=== PATIENT | male | born 1930 | race Caucasian/White ===

== ENCOUNTER 2016-07-03 11:54 | Emergency (ER) | payer MEDICARE, OTHER ==
[2016-07-03 12:10] VITALS: BP 147/71
--- NOTE | 2016-07-03 12:27 | ERNOTE ---
Abdominal HPI - Narrative Date of Service: 07/03/16 - General Chief Complaint: Constipation Time Seen by Provider: 07/03/16 12:12 Source: patient Exam Limitations: no limitations - Immun/Allergies/Home Medications Allergies/Adverse Reactions: Allergies No Known Allergies Allergy (Verified 07/03/16 12:02) Home Medications: HOME MEDICATIONS Aspirin 81 mg PO DAILY 07/03/16 [Last Taken Unknown] Metoprolol Tartrate [Lopressor] 25 mg PO DAILY 07/03/16 [Last Taken Unknown] Sertraline HCl [Zoloft] 50 mg PO DAILY 07/03/16 [Last Taken Unknown] Tamsulosin HCl [Flomax] 0.4 mg PO DAILY@1800 #30 cap 07/03/16 [Last Taken Unknown] - History of Present Illness Narrative: Pt. comes in with c/o not being able to have a BM for two weeks. Pt. states that he feels like the stool is not reaching his rectum. Pt. denies any abd pain, NVD, fever or recent illness. Pt. does state taht he has had some burning withy urination and worsening of his BPH symptoms recently, which is managed by [facility]. Review of Systems - Review of Systems Constitutional: Present: no symptoms reported. Absent: recent illness, fever, weakness, fatigue, malaise EYE: Present: no symptoms reported ENT: Present: no symptoms reported Respiratory: Present: no symptoms reported. Absent: shortness of breath, cough , wheezing Cardiology: Present: no symptoms reported. Absent: chest pain, palpitations, edema Gastrointestinal/Abdominal: Present: constipation. Absent: nausea, vomiting, diarrhea, abdominal pain, eating less, drinking less Genitourinary: Present: frequency, dysuria. Absent: hematuria, decreased urinary output Musculoskeletal: Present: no symptoms reported. Absent: back pain, joint pain Skin: Present: no symptoms reported. Absent: rash, change in color Neurological: Present: no symptoms reported. Absent: headache, dizziness/light- headedness, numbness, tingling All Other Systems: All systems neg except as marked - Patient's Past Medical History Patient History - Medical: Depression Patient History - Cardiac/Respiratory: Hypertension Patient History - Surgical Procedures: Cholecystectomy, Other - Family History Mother Family History - Medical: , History Unknown Father Family History - Medical: , History Unknown - Social History Living Situations: home Smoking Status: Former smoker Have you smoked in the past 12 months: No Do you dip or chew tobacco: No Alcohol Use: none Drug Use: none Physical Exam - Physical Exam General Appearance: Present: wd/wn, alert, no apparent distress Eye Exam: Normal inspection: bilateral, PERRL: bilateral, EOMI: bilateral Ears, Nose, Throat: Present: normal ENT inspection, hearing grossly normal, normal pharynx Neck: Present: normal inspection, nontender. Absent: lymphadenopathy (R), lymphadenopathy (L) Respiratory: Present: no respiratory distress, normal breath sounds, no accessory muscle use, chest nontender, lungs clear Cardiovascular/Chest: Present: regular rate, rhythm, no murmur, normal peripheral pulses Gastrointestinal/Abdominal: Present: normal bowel sounds, nontender, nondistended, soft, no organomegaly Male Genitals Exam: Present: no hernia, high [place] prostate - enlarged mildly Back Exam: Present: normal inspection, normal range of motion, no CVA tenderness , no vertebral tenderness Neurological Exam: Present: alert, oriented, normal mood/affect, no motor/ sensory deficits Skin Exam: Present: normal color, warm/dry ED Progress - Vital Signs Patient's Vital Signs:: I have reviewed the patient's vital signs. Vital Signs: Vital Signs 07/03/16 11:58 Temperature 36.5 C Pulse Rate 67 Respiratory 16 Rate Blood Pressure 147/71 O2 Sat by Pulse 100 Oximetry - X-Ray X-Ray #1 X-Ray: abdomen Interpretation: Reviewed by me X-ray Comments: Pt. with normal amount of stool and prostate calcifications - Progress/Reassessment Chief Complaint: Constipation Departure - Departure Clinical Impression: Anorexia BPH (benign prostatic hyperplasia) Qualifiers: Prostatic enlargement morphology: unspecified morphology Lower urinary tract symptom presence: symptoms present Qualified Code(s): N40.1 - Benign prostatic hyperplasia with lower urinary tract symptoms Disposition: Home self-care Condition: Good Instructions: Benign Prostatic Hyperplasia, High-Protein and High-Calorie Diet Additional Instructions: Please follow up with urology at [facility] and increase the amount you eat. Referrals: Mars Ni MD [Primary Care Provider] - Prescriptions: Tamsulosin HCl [Flomax] 0.4 mg PO DAILY@1800 #30 cap
[2016-07-03 12:37] LABS: Urine Bilirubin Negative (NEGATIVE); Urine Blood Negative /ul (NEGATIVE); Urine Ketone Negative (NEGATIVE); Urine Nitrite Negative (NEGATIVE); Urine Protein Negative (NEGATIVE); Urine Specific Gravity 1.015 SP.GR. (1.005-1.030); Urine Urobilinogen Normal (NORMAL); Urine pH 6.5 pH (5.0-7.0)
[2016-07-03 12:47] LABS: Urine Appearance Clear; Urine Bacteria None Seen; Urine Color Yellow; Urine RBC None Seen /hpf (0-5); Urine WBC None Seen /hpf (0-5)
== END 2016-07-03 13:54 | disposition home or self-care (01) ==
LOC: ER 11:54
DX: R63.0 Anorexia (principal); N40.1 Benign prostatic hyperplasia with lower urinary tract symptoms; Z87.891 Personal history of nicotine dependence; F32.9 Major depressive disorder, single episode, unspecified; I10 Essential (primary) hypertension